=== PATIENT | male | born 1965 | race Caucasian/White ===

== ENCOUNTER 2019-01-01 23:08 | Emergency (ER) | payer BC, MEDICAID, OTHER ==
[~2019-01-01] VITALS: Ht 172.7 cm; Wt 77.1 kg
--- NOTE | 2019-01-01 23:15 | NUR ---
KENJI REDDY AT BEDSIDE.
--- NOTE | 2019-01-01 23:15 | NUR ---
Pt BIBRA for witnessed seizure in the back of the car while in custody x 30 sec. Pt has hx of seizures. Pt is AAXO4. Pt respirations even and unlabored. Pt put on the monitor and pending eval from er MD. CAVAZOS at bedside.
[2019-01-01 23:31] LABS: BASOPHILS # (AUTO) 0.1 /CMM (0.0-0.2); EOSINOPHILS % (AUTO) 5.4 % (0.0-6.0); HEMATOCRIT 36 % (39-51); HEMOGLOBIN 11.7 g/dL (13.5-17.5); LYMPHOCYTES # (AUTO) 1.9 /CMM (0.8-4.8); LYMPHOCYTES % (AUTO) 26.1 % (20.0-44.0); MEAN CORPUSCULAR HGB CONC 33 g/dl (31.0-36.0); MEAN CORPUSCULAR VOLUME 87 fL (80-96); MONOCYTES # (AUTO) 0.6 /CMM (0.1-1.30); MONOCYTES % (AUTO) 8.6 % (2.0-12.0); NEUTROPHILS # (AUTO) 4.4 /CMM (1.8-8.9); NEUTROPHILS % (AUTO) 58.9 % (43.0-81.0); PLATELET COUNT (AUTO) 237 /CMM (150-450); RED BLOOD CELL COUNT(AUTO) 4.08 MIL/uL (4.5-6.0); WHITE BLOOD COUNT (AUTO) 7.4 K/uL (4.3-11.0)
[2019-01-01 23:39] LABS: CALCIUM, SERUM 8.6 mg/dL (8.5-10.1); CARBON DIOXIDE 29 mmol/L (21-32); CHLORIDE 106 mmol/L (98-107); CREATININE 0.9 mg/dL (0.6-1.3); GLUCOSE 156 mg/dL (74-106); POTASSIUM 3.7 mmol/L (3.5-5.1); SODIUM SERUM 137 mmol/L (136-145); UREA NITROGEN, BLOOD 30 mg/dL (7-18)
[2019-01-01 23:44] LABS: ALANINE AMINOTRANSFERASE 25 U/L (12-78); ALBUMIN 3.2 g/dL (3.4-5.0); ALCOHOL, BLOOD < 3 mg/dL (0-0); ALKALINE PHOSPHATASE 62 U/L (46-116); ASPARTATE AMINOTRANSFERASE 28 U/L (15-37); BILIRUBIN,DIRECT 0.1 mg/dL (0.0-0.2); BILIRUBIN,TOTAL 0.1 mg/dL (0.2-1.0); TOTAL PROTEIN, SERUM 6.3 g/dL (6.4-8.2)
[2019-01-01] MEDS ORDERED: PHENYTOIN SODIUM IV 50 MG/ML VIAL ONE (23:58)
[2019-01-02] MEDS ORDERED: IV NS 0.9% 500 ML BAG IV ONE
[2019-01-02] MEDS ORDERED: PHENYTOIN SODIUM IV 50 MG/ML VIAL IV ONE
--- NOTE | 2019-01-02 00:07 | NUR ---
Pt taken to CT.
--- NOTE | 2019-01-02 00:15 | NUR ---
Pt returned from CT.
--- NOTE | 2019-01-02 01:05 | NUR ---
Patient discharged to custody in stable condition. Written and verbal after care instructions given. Patient verbalizes understanding of instruction. IV removed. Catheter intact and site benign. Pressure and 4x4 applied to site. No bleeding noted.
[2019-01-02 01:27] VITALS: BP 142/86
== END 2019-01-02 01:27 ==
LOC: ER 23:08
DX: G40.909 Epilepsy, unspecified, not intractable, without status epilepticus (principal); F19.10 Other psychoactive substance abuse, uncomplicated; I10 Essential (primary) hypertension; F43.10 Post-traumatic stress disorder, unspecified; F12.10 Cannabis abuse, uncomplicated; F15.10 Other stimulant abuse, uncomplicated; Z88.0 Allergy status to penicillin; Z59.0 Homelessness
CPT/HCPCS: 36415; 70450; 71045; 80048; 80076; 80305; 80307; 82962; 85025; 85730; 93005; 96374; 99284; A4606; J1165; J7040; G0480

== ENCOUNTER 2019-12-28 03:55 | Emergency (ER) | payer BC ==
[~2019-12-28] VITALS: Ht 172.7 cm; Wt 77.1 kg
--- NOTE | 2019-12-28 06:33 | NUR ---
PT UNABLE TO PROVIDE URINE SAMPLE AT THIS TIME
--- NOTE | 2019-12-28 06:54 | NUR ---
BLACK FROM STREET. TO ER BED 6. ALERT AND AWAKE. RAMBLING INCONHERENT. HYPERVERBAL - THINKS THAT HE IS A "SCUM BAG" AND GOES TO HOSPITAL FOR FREE STUFF. PT ADMITS DOING DRUG BUT DIDNOT SPEICIFY EHICH ONE. MD AT BEDSIDE FOR EVAL. ORDERS RECEIVED, NOTED AND CARRIED OUT. BLOOD DRAW AND GIVEN TO COMMISSIONING AGENT AT BEDSIDE. UNABLE TO COLLECT URINE AT THIS TIME. WATER PROVIDED.
[2019-12-28 07:10] LABS: BASOPHILS % (AUTO) 0.6 % (0.0-2.0); HEMATOCRIT 39 % (39-51); HEMOGLOBIN 12.8 g/dL (13.5-17.5); LYMPHOCYTES # (AUTO) 1.2 /CMM (0.8-4.8); LYMPHOCYTES % (AUTO) 15.5 % (20.0-44.0); MEAN CORPUSCULAR HGB CONC 33 g/dl (31.0-36.0); MEAN CORPUSCULAR VOLUME 86 fL (80-96); MONOCYTES # (AUTO) 0.6 /CMM (0.1-1.30); MONOCYTES % (AUTO) 7.8 % (2.0-12.0); NEUTROPHILS # (AUTO) 5.9 /CMM (1.8-8.9); NEUTROPHILS % (AUTO) 74.1 % (43.0-81.0); PLATELET COUNT (AUTO) 268 /CMM (150-450); RED BLOOD CELL COUNT(AUTO) 4.52 MIL/uL (4.5-6.0)
[2019-12-28 07:17] LABS: CALCIUM, SERUM 8.8 mg/dL (8.5-10.1); CARBON DIOXIDE 25 mmol/L (21-32); CHLORIDE 102 mmol/L (98-107); CREATININE 0.9 mg/dL (0.6-1.3); GLUCOSE 104 mg/dL (74-106); POTASSIUM 3.7 mmol/L (3.5-5.1); SODIUM SERUM 136 mmol/L (136-145); UREA NITROGEN, BLOOD 29 mg/dL (7-18)
[2019-12-28] MEDS ORDERED: LORAZEPAM INJ 2 MG/ML VIAL ONE (07:17)
[2019-12-28] MEDS ORDERED: OLANZAPINE 10 MG VIAL IM ONE ×2 (07:17→07:30)
--- NOTE | 2019-12-28 07:20 | NUR ---
urine collected and sent to lab
[2019-12-28 07:25] LABS: ALANINE AMINOTRANSFERASE 44 U/L (12-78); ALBUMIN 3.4 g/dL (3.4-5.0); ALKALINE PHOSPHATASE 70 U/L (46-116); ASPARTATE AMINOTRANSFERASE 57 U/L (15-37); BILIRUBIN,DIRECT 0.1 mg/dL (0.0-0.2); BILIRUBIN,TOTAL 0.5 mg/dL (0.2-1.0); SALICYLATE 2.9 mg/dL (2.8-20.0)
[2019-12-28 07:27] LABS: ACETAMINOPHEN 0 ug/ml (10-30); ALCOHOL, BLOOD < 3 mg/dL (0-0)
[2019-12-28] MEDS ORDERED: OLANZAPINE 5 MG TABLET PO ONE (07:30)
[2019-12-28] MEDS ORDERED: LORAZEPAM INJ 2 MG/ML VIAL IM/IV ONE (07:30)
[2019-12-28 07:57] LABS: APPEARANCE,URINE Clear (CLEAR); BILIRUBIN,URINE Negative (NEGATIVE); BLOOD, URINE Negative Ery/uL (NEGATIVE); COLOR,URINE Yellow (YELLOW); KETONES,URINE Negative (NEGATIVE); LEUKOCYTE ESTERASE ,URINE Negative (NEGATIVE); NITRITE, URINE Negative (NEGATIVE); PROTEIN,URINE Negative (NEGATIVE); UGLUCOSE Negative (NEGATIVE); UROBILINOGEN,URINE 0.2 EU/dL (0.2)
--- NOTE | 2019-12-28 10:29 | NUR ---
Patient is resting comfortably in bed with eyes closed. Easily aroused. VSS
--- NOTE | 2019-12-28 21:05 | NUR ---
pt in bed, arousable, -sob, pt on monitor, nad noted, vs updated
--- NOTE | 2019-12-29 00:30 | NUR ---
Patient is resting comfortably in bed with eyes closed. Easily aroused. VSS
--- NOTE | 2019-12-29 02:37 | NUR ---
Patient is resting comfortably in bed with eyes closed. Easily aroused. VSS
--- NOTE | 2019-12-29 04:48 | NUR ---
PT AWAKE, AAOX4. VITAL SIGNS STABLE. NO ACUTE DISTRESS NOTED AT THIS TIME.
[2019-12-29 04:51] VITALS: BP 137/72
--- NOTE | 2019-12-29 04:53 | NUR ---
Patient given written and verbal discharge instructions. Patient verbalizes understanding of instructions. Patient is ambulatory with steady gait. Refuses offer of [facility] placement. Patient given list of available shelters in surrounding area.
== END 2019-12-29 05:03 | disposition home or self-care (01) ==
LOC: ER 03:56
DX: F19.959 Other psychoactive substance use, unspecified with psychoactive substance-induced psychotic disorder, unspecified (principal); F23 Brief psychotic disorder; F22 Delusional disorders; R45.851 Suicidal ideations; F43.10 Post-traumatic stress disorder, unspecified; I10 Essential (primary) hypertension; F25.9 Schizoaffective disorder, unspecified; Z59.0 Homelessness; Z88.0 Allergy status to penicillin
CPT/HCPCS: 36415; 80048; 80076; 80305; 80307; 80329; 81001; 85025; 96372 ×2; 99285; G0480; J2060; J3490; 81000-TC